=== PATIENT | female | born 1965 | race African-American/Black ===

== ENCOUNTER 2017-09-17 11:44 | Emergency (ER) | payer SELFPAY ==
[~2017-09-17] VITALS: Ht 167.6 cm; Wt 90.0 kg
[2017-09-17 11:47] VITALS: BP 160/90
[2017-09-17] MEDS ORDERED: MECLIZINE 25MG TABLET PO ONE (12:15)
[2017-09-17] MEDS ORDERED: PREDNISONE 20MG TABLET PO ONE (12:15)
[2017-09-17 14:03] LABS: BASOPHILS % 0.5 % (0.0-2.0); EOSINOPHILS % 1.3 % (0.0-5.0); HEMATOCRIT. 28.3 % (36.0-48.0); HEMOGLOBIN. 8.1 g/dL (12.0-16.0); LYMPHOCYTES % 31.1 % (20.0-50.0); MEAN CORPUSCULAR HEMOGLOBIN 17.7 pg (28.0-32.0); MEAN CORPUSCULAR VOLUME 61.8 fL (81.0-99.0); MEAN PLATELET VOLUME 6.5 fl (7.4-10.4); MONOCYTES % 6.7 % (2.0-8.0); NEUTROPHILS % 60.4 % (40.0-76.0); PLATELET 495 x1000/uL (130-400); RED BLOOD CELL COUNT 4.57 mill/uL (4.2-5.4); RED CELL DISTRIBUTION WIDTH 19.4 % (11.6-14.6)
[2017-09-17 14:12] LABS: CHLORIDE 108 mEq/L (98-107)
[2017-09-17 14:18] LABS: CARBON DIOXIDE 25 mEq/L (21-32)
[2017-09-17 14:20] LABS: PLATELET ESTIMATE INCREASED
== END 2017-09-17 16:36 | disposition left against medical advice (07) ==
LOC: ER 11:57
DX: H81.23 Vestibular neuronitis, bilateral (principal); R20.2 Paresthesia of skin
CPT/HCPCS: 36415; 80048; 85025; 93005; 99285